=== PATIENT | female | born 1970 | race Hispanic/Latino ===

== ENCOUNTER 2023-07-23 11:08 | Emergency (ER) | payer BC ==
[~2023-07-23] VITALS: Ht 167.6 cm; Wt 102.1 kg
[2023-07-23] MEDS ORDERED: KETOROLAC 30MG VIAL (30MG/ML) IM ONE (12:00)
[2023-07-23] MEDS ORDERED: KETOROLAC 60 MG VIAL (30MG/ML) IM ONE (12:05)
[2023-07-23] MEDS ORDERED: HYDROCODONE/ACETAMINOPHEN 10/325 MG TAB ONE (12:21)
[2023-07-23] MEDS ORDERED: HYDROCODONE/ACETAMINOPHEN 10/325 MG TAB PO ONE (12:30)
[2023-07-23] MEDS ORDERED: HYDR-4060 PO (14:49)
[2023-07-23] MEDS ORDERED: IBUP-2070 PO (14:50)
[2023-07-23 15:27] VITALS: BP 128/78; PULSE 92; RESP 18; O2SAT 10
== END 2023-07-23 15:28 | disposition home or self-care (01) ==
LOC: EDH 11:08
DX: S82.492A Other fracture of shaft of left fibula, initial encounter for closed fracture (principal); M25.571 Pain in right ankle and joints of right foot; M25.572 Pain in left ankle and joints of left foot; M79.89 Other specified soft tissue disorders; I10 Essential (primary) hypertension; E78.00 Pure hypercholesterolemia, unspecified; Z98.890 Other specified postprocedural states; Z90.710 Acquired absence of both cervix and uterus; R07.89 Other chest pain; Z88.5 Allergy status to narcotic agent; Z88.8 Allergy status to other drugs, medicaments and biological substances; X58.XXXA Exposure to other specified factors, initial encounter; Y93.89 Activity, other specified; Y92.89 Other specified places as the place of occurrence of the external cause; Y99.8 Other external cause status
CPT/HCPCS: 99284; 71045; 73600 ×2; 96372; 93005; J1885